=== PATIENT | male | born 1985 | race Caucasian/White ===

== ENCOUNTER 2018-04-20 08:53 | Emergency (ER) | payer BC ==
--- NOTE | 2018-04-20 09:02 | ED ---
Skin Complaint - HPI Summary HPI Summary: Patient is year old , without any significant past medical history who present today with for past days. Associated symptoms: No sick contacts . No skin rash. Denies any new soap, detergent , cosmetics, food or a possible exposure. Denies any fever, chills, cough chest pain or shortness of breath . No diaphoresis. Denies any abdominal pain , nausea or vomiting , diarrhea or constipation. There is no stridor, grunting or audible wheezing drooling, chest retraction , , dehydration, Denies any conjunctival redness, irritation, increased lacrimation. Denies any grittiness Denies any radicular symptoms, numbness , tingling , incontinence, saddle anesthesia , motor or sensory disturbance. He has tried over the counter medication without much relief. Negative - History of Current Complaint Time Seen by Provider: 04/20/18 09:01 Stated Complaint: SKIN ISSUE - Allergy/Home Medications Allergies/Adverse Reactions: Allergies Allergy/AdvReac Type Severity Reaction Status Date / Time MS Aspirin [Aspirin] Allergy Rash And Verified 08/28/15 14:09 Itching MS Bee Venom [Bee Venom] Allergy Swelling Verified 08/28/15 14:09 MS Naproxen [From Aleve] Allergy Rash Verified 08/28/15 14:09 PMH/Surg Hx/FS Hx/Imm Hx Infectious Disease History: Denies: History Other Infectious Disease, Traveled Outside the [place] in Last 30 Days - Social History Alcohol Use: Occasionally Alcohol Amount: beer tonight Substance Use Type: Reports: None Smoking Status (MU): Never Smoked Tobacco Physical Exam - Summary Physical Exam Summary: Physical Exam: Const: Appears well. No signs of apparent distress present. Alert and oriented x 3. Musculo: Walks with a normal gait. Head/Face: Atraumatic, normocephalic on inspection. Eyes: EOMI and PERRLA in both eyes. Conjunctivae clear. No discharge noted ENT: Hearing normal, TM normal appearing bilaterally . Respiratory: Respirations are unlabored. Lungs clear to auscultation bilaterally, no wheezing , rhonchi or rales noted . CVS: Regular rate and Rhythm, S1S2 normal , no murmurs identified. Extremities: Peripheral circulation is grossly normal. Pulses 2+ Abdomen : Soft non tender , nondistended , Bowel sounds present . No guarding , rebound tenderness or rigidity noted. Skin: No lesions or rash located on the upper extremities or on the lower extremities. Neuro: Cranial nerves II to XII intact, motor and sensory intact. DTR Intact bilaterally. Mood is normal. Affect is normal. Course/Dx - Course Course Of Treatment: During the visit today, we obtained . We discussed the findings and further plan. I will prescribe the medication to the pharmacy . Patient expressed understanding . Discharge - Discharge Plan Referrals: Anthony Ramos MD [Primary Care Provider] - Additional Instructions: Please start taking the medication as prescribed to the pharmacy . Follow up with your primary care doctor in 2 days. Please follow up with .. for the consult Patients blood pressure slightly high in Urgent care today , plan follow up with PCP for better control Return to Urgent care / ER if symptoms get worse.
[2018-04-20 09:10] VITALS: BP 143/91
[2018-04-20] MEDS ORDERED: Lidocaine 1%* 5 ML VIAL INJ ONE (09:38)
--- NOTE | 2018-04-20 10:07 | UC ---
Skin Complaint HPI - HPI Summary HPI Summary: 32 y/o male presents to the urgent care c/o painful lump in his left buttocks for the past week. pt reports lump opened 2 days ago and it has been draining pus w/ streaks of blood. 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 But denies Hx of MRSA. Pain is 7/10 w/ touch. He has applied warm compresses, but has not taking anything for pain. Pt denies fever, SOB, chest pain,abdominal pain, N/V/D. - History of Current Complaint Chief Complaint: UCSkin Time Seen by Provider: 04/20/18 09:01 Stated Complaint: SKIN ISSUE Hx Obtained From: Patient Onset/Duration: Gradual Onset, Lasting Weeks - 1 week, Still Present, Worse Since - 2 days lump opened and started to drain yellowish pus Skin Exposure Onset/Duration: Weeks Ago - 1 week Timing: Constant Onset Severity: Mild Current Severity: Moderate Pain Intensity: 7 Pain Scale Used: 0-10 Numeric Location: Discrete - left gluteus Character: Swelling, Redness, Raised, Painful Aggravating Factor(s): Touch Alleviating Factor(s): Nothing Associated Signs & Symptoms: Positive: Rash - left gluteus w/ a painful lump, Drainage, Tenderness. Negative: Fever, Chills - Allergy/Home Medications Allergies/Adverse Reactions: Allergies Allergy/AdvReac Type Severity Reaction Status Date / Time aspirin Allergy Rash Verified 04/20/18 09:12 bee venom protein (honey bee) Allergy Hives/Diff. Verified 04/20/18 09:12 Breathing/I tching naproxen Allergy Rash Verified 04/20/18 09:12 Review of Systems All Other Systems Reviewed And Are Negative: Yes Constitutional: Positive: Negative Skin: Positive: Rash - left gluteus w/ redness and a painful lump near anus open and draining yellowish pus Eyes: Positive: Negative ENT: Positive: Negative Respiratory: Positive: Negative Cardiovascular: Positive: Negative Gastrointestinal: Positive: Negative Genitourinary: Positive: Negative Motor: Positive: Negative Neurovascular: Positive: Negative Musculoskeletal: Positive: Negative Neurological: Positive: Negative Psychological: Positive: Negative Is Patient Immunocompromised?: No PMH/Surg Hx/FS Hx/Imm Hx Previously Healthy: Yes - Pt denies PMHX - Surgical History Surgical History: None - Family History Known Family History: Positive: Cardiac Disease, Hypertension - Social History Occupation: Employed Full-time Lives: With Family Alcohol Use: Weekly Alcohol Amount: beer tonight Substance Use Type: None Smoking Status (MU): Never Smoked Tobacco Physical Exam - Summary Physical Exam Summary: Vital Signs Reviewed: Yes General: well developed, well nourished male sitting in the examining table w/o any apparent distress Eye Exam: Normal Eyes: Positive: Conjunctiva Clear - PERRLA, EOMI, fundi grossly normal ENT: Positive: Normal ENT inspection, Hearing grossly normal, Pharynx normal, TMs normal Neck: Positive: Supple, Nontender, No Lymphadenopathy Respiratory: Positive: Chest non-tender, Lungs clear, Normal breath sounds, No respiratory distress Cardiovascular: Positive: RRR, No Murmur, Pulses Normal, Brisk Capillary Refill Abdomen Description: Positive: Nontender, No Organomegaly, Soft. Negative: CVA Tenderness (R), CVA Tenderness (L) Bowel Sounds: Positive: Present Musculoskeletal: Positive: Strength Intact, ROM Intact, No Edema Neurological: Positive: Alert, Muscle Tone Normal Psychological Exam: Normal Skin: Positive: left gluteus about 2cm away from the anus w/ a small erythematous pustule that is indurated and fluctuant, tender to palpation, swollen, and warm to touch about 2.0cm x2.0cm in size, sensation is intact, capillary refill WNL, reflexes WNL Triage Information Reviewed: Yes Vital Signs: Initial Vital Signs Temp 98.6 F 04/20/18 09:02 Pulse 109 04/20/18 09:02 Resp 16 04/20/18 09:02 BP 143/91 04/20/18 09:02 Pulse Ox 99 04/20/18 09:02 Course/Dx - Course Course Of Treatment: 32 y/o male presents to the urgent care c/o painful lump in his left buttocks for the past week. pt reports lump opened 2 days ago and it has been draining pus w/ streaks of blood. 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 But denies Hx of MRSA. Pain is 7/10 w/ touch. He has applied warm compresses, but has not taking anything for pain. Pt denies fever, SOB, chest pain,abdominal pain, N/V/D. Hx obtained. Pt w/ a draining abscess on the left gluteus about 2.0cmX2.0cm in size on examination. Abscess already open, but patient can't tolerate draining due to pain. I&D of abscess procedure:The procedure was explained and consent obtained. Claunch protocol performed w/ Nurse Silvia. The wound was anesthetized with 4mL of Lido 2% with good anesthesia. Sterile drape and prep were done. A moderate amount of caseous material was expressed . wound cultures obtained and sent to lab top r/ o MRSA. The wound was probed for loculated areas and irrigated with normal saline. The wound was packed loosely with wick or left open. Bacitracin topical ointment applied and wound covered with sterile dressing. The patient tolerated the procedure well. Pt Rx Bactrim PO and Bacitracin oint PO for pain. Advised to return to the urgent care or Suregeon DR Perez for wound check up. Pt also advised fever develops and pain increase despite ABX to go immediately to the ER for further management. Pt's BP is elevated today advised to decrease salt in diet, monitor BP and f/u with PCP for further management. Pt understood and agreed with D/C instructions. Pt Left the clinic ambulating A&OX3. - Differential Diagnoses - Skin Complaint Differential Diagnoses: Abscess, Cellulitis, Contact Dermatitis, Lymphadenitis, MRSA - Diagnoses Provider Diagnoses: 1- incision and drainage of abscess on the left gluteus. 2- Elevated BP w/o Hx of HTN Discharge - Sign-Out/Discharge Documenting (check all that apply): Patient Departure - D/C home All imaging exams completed and their final reports reviewed: No Studies - Discharge Plan Condition: Stable Disposition: HOME Prescriptions: Bacitracin OINTMENT* 1 applic TOPICAL BID #1 tube Sulfamethox/Trimethoprim DS* [Bactrim DS 800/160 TAB*] 1 tab PO BID #20 tab Patient Education Materials: Abscess (ED), Low-Sodium Diet (ED) Referrals: Miles Perez MD [Medical Doctor] - 2 Days Anthony Ramos MD [Primary Care Provider] - 2 Days Additional Instructions: 1-Please take full course of antibiotic to avoid resistance. Keep wound clean and dry with a sterile dressing. Apply bacitracin topical as directed 2- F/u wound check up in [address] Perez or at the urgent care for removal of packing 3-. Take Ibuprofen PO q6-8hrs prn for pain or swelling. 4-If you develop fever or redness despite antibiotic please go to the ER immediately or Surgeon DR Perez for further management 5- Wound culture sent to lab, if any abnormal result you will receive a call from us. 6-Your BP is elevated today. please decrease salt in your diet, monitor BP and if it continues to be elevated please f/u with your PCP for further management - Billing Disposition and Condition Condition: STABLE Disposition: Home
== END 2018-04-20 10:15 | disposition home or self-care (01) ==
LOC: UCEAST 08:53
DX: L02.31 Cutaneous abscess of buttock (principal); R03.0 Elevated blood-pressure reading, without diagnosis of hypertension; Z88.6 Allergy status to analgesic agent; Z91.030 Bee allergy status
CPT/HCPCS: 10060; 46050; 87070; 87077; 87186; 87205; 87640; 87641; 99212; G0463